=== PATIENT | male | born 1960 | race Caucasian/White ===

== ENCOUNTER → 2017-03-10 | Day surgery (SDC) | payer MEDICARE, OTHER ==
[~2017-03-10] MED LIST: ATROPINE 1 MG/10 ML SYRINGE IV PRN; BUPIVACAINE 0.25% (MPF) 30 ML INJ INJ ONE; CEFAZOLIN 2 GM/50 ML (PMX) 50 ML IVPB SCH; DEXAMETHASONE 4 MG/ML 1 ML INJ ONE; DIPHENHYDRAMINE 50 MG INJ IV PRN; EPHEDrine SULFATE 50 MG/5 ML SYG IV PRN; FENTAnyl 50 MCG/ML VIAL IV PRN; FENTAnyl 50 MCG/ML VIAL ONE; FLUMAZENIL 0.5 MG INJ ONE; GLYCOPYRROLATE 0.4 MG INJ ONE; HYDROmorphONE (0.2 MG/ML) 10ML SYG IV PRN; LABETALOL HCL 20MG INJ IV PRN; LIDOCAINE 2% (SDV) 5 ML INJ ONE; MEPERIDINE 25 MG INJ IV PRN; MIDAZOLAM 1 MG/ML 2 ML INJ IV PRN; MIDAZOLAM 1 MG/ML 2 ML INJ ONE; NEOSTIGMINE 3 MG/3 ML SYRINGE ONE; ONDANSETRON 4 MG INJ IV PRN; ONDANSETRON 4 MG INJ ONE; OXYCODONE/ACETAMINOPHEN (5/325) TAB PO PRN; PROPOFOL 20 ML ONE; ROCURONIUM 50 MG INJ ONE; hydrALAzine 20 MG INJ IV PRN; morphine (1 MG/ML) 10ML SYRINGE IV PRN
== END | disposition home or self-care (01) ==
LOC: SDS 07:05
PROVIDERS: ATTEND Urology
DX: N47.1 Phimosis (principal); Z53.9 Procedure and treatment not carried out, unspecified reason
CPT/HCPCS: J1100; J2405; J2710; J2250; J3010